=== PATIENT | male | born 1935 | race Caucasian/White ===

== ENCOUNTER 2020-03-06 10:48 | Inpatient (IN) | payer OTHER, MEDICARE ==
[2020-03-05 15:53] LABS: BILIRUBIN,URINE NEGATIVE (NEGATIVE); BLOOD, URINE 2+ (NEGATIVE); CLARITY/URINE SL CLOUDY (CLEAR); COLOR,URINE YELLOW (YELLOW); GLUCOSE,URINE NEGATIVE (NEGATIVE); KETONES,URINE NEGATIVE (NEGATIVE); LEUKOCYTE ESTERASE ,URINE 3+ (NEGATIVE); NITRITE, URINE POSITIVE (NEGATIVE); PH,URINE 5.5 (5.0-8.0); PROTEIN URINE 1+ (NEGATIVE); UROBILINOGEN,URINE 0.2 (0.2-1.0)
[2020-03-05 15:54] LABS: BASOPHILS # (AUTO) 0.1 K/uL (0.0-0.2); EOSINOPHILS # (AUTO) 0.3 K/uL (0.0-0.4); EOSINOPHILS % (AUTO) 2.8 % (0.0-4.0); HEMATOCRIT 44.1 % (36-54); HEMOGLOBIN 14.6 g/dL (14.0-18.0); LYMPHOCYTES # (AUTO) 2.1 K/uL (1.0-5.5); LYMPHOCYTES % (AUTO) 23.2 % (20.5-51.5); MEAN CORPUSCULAR HEMOGLOBIN 32 pg (27-31); MEAN CORPUSCULAR HGB CONC 33 % (32-36); MEAN CORPUSCULAR VOLUME 97 fL (79.0-98.0); MONOCYTES # (AUTO) 0.8 K/uL (0.0-1.0); MONOCYTES % (AUTO) 8.8 % (1.7-9.3); NEUTROPHILS # (AUTO) 5.8 K/uL (1.8-7.7); NEUTROPHILS % (AUTO) 64.2 % (40.0-70.0); PLATELET COUNT (AUTO) 180 K/uL (130-430); RED BLOOD CELL COUNT(AUTO) 4.55 MIL/uL (4.2-6.2); RED CELL DISTRIBUTION WIDTH 14.1 % (9.0-15.0); WHITE BLOOD COUNT (AUTO) 9.1 K/uL (4.8-10.8)
[2020-03-05 16:07] LABS: ALANINE AMINOTRANSFERASE 27 U/L (12-78); ALBUMIN 4.2 g/dL (3.4-4.8); ANION GAP 10 (5-15); ASPARTATE AMINOTRANSFERASE 29 U/L (10-37); CALCIUM 9.2 mg/dL (8.4-11.0); CHLORIDE 99 mmol/L (98-107); CREATININE 2.58 mg/dL (0.55-1.30); GLUCOSE 120 mg/dL (70-99); POTASSIUM 4.1 mmol/L (3.5-5.1); SODIUM SERUM 133 mmol/L (136-145); TOTAL BILIRUBIN 0.7 mg/dL (0.0-1.0); UREA NITROGEN, BLOOD 45 mg/dL (8-21)
[2020-03-05 16:48] LABS: BACTERIA,URINE MODERATE /HPF (None Seen); WBC,URINE 80-100 /HPF (0-3)
[2020-03-05 16:49] LABS: MUCUS,URINE 1+ /LPF (None Seen)
[~2020-03-06] VITALS: Ht 177.8 cm; Wt 72.6 kg
[2020-03-06] MEDS ORDERED: CEFTRIAXONE SOD 1 GM/ D5W 50 ML IV ONE ×2 (11:45)
[2020-03-06] MEDS ORDERED: MILK OF MAGNESIA 30 ML UDC PO PRN (13:45)
[2020-03-06] MEDS ORDERED: ONDANSETRON HCL 4 MG/2 ML VIAL IM PRN (13:45)
[2020-03-06] MEDS ORDERED: NALOXONE HCL 0.4 MG/ML AMP (NARCAN) IVP PRN (14:30)
[2020-03-06] MEDS ORDERED: NALBUPHINE HCL 10 MG/ML AMP IVP PRN (14:30)
[2020-03-06] MEDS ORDERED: fentaNYL CITRATE/PF 100 MCG/2 ML AMP IVP PRN ×2 (14:30)
[2020-03-06] MEDS ORDERED: FENT2mCg/mL-ROPIVA0.2%/NS EPID 200 ML EP SCH (14:30)
[2020-03-06] MEDS ORDERED: DIPHENHYDRAMINE INJ 50 MG/ML VIAL IVP PRN (14:30)
[2020-03-06] MEDS ORDERED: FENT2mCg/mL-ROPIVA0.2%/NS EPID 200 ML EP ONE (15:50)
[2020-03-06] MEDS ORDERED: LR 1,000 ML IV.SOLN IV ONE (16:30)
[2020-03-06] MEDS ORDERED: BUPIVACAINE /PF 0.75% 10 ML VIAL INJ ONE (16:30)
[2020-03-06] MEDS ORDERED: NS IRRIG SOLN 5000 ML IR ONE (16:30)
[2020-03-06] MEDS ORDERED: NS IRRIG SOLN 1000 ML IR ONE (16:30)
[2020-03-06] MEDS ORDERED: MIDAZOLAM HCL 5 MG/ML VIAL (VERSED) IV ONE (16:30)
[2020-03-06] MEDS ORDERED: MORPHINE 4 MG/ML INJ. SYRINGE IVP PRN (17:30)
[2020-03-06] MEDS ORDERED: HYDROcodone/ACETAMIN 5-325 MG TAB (NORCO/ VICODIN) PO PRN (17:30)
[2020-03-06 17:54] VITALS: BP_SYST 134
[2020-03-06 18:53] VITALS: BP_SYST 106
--- NOTE | 2020-03-06 19:24 | NUR ---
Handoff with night team registered nurse, Terrell Renner RN
[2020-03-06 19:33] VITALS: BP_SYST 109
--- NOTE | 2020-03-06 19:35 | NUR ---
initial notes: pt in bed, alert, awake oriented x 4. no pain. no distress, stable vital sign. s/p post prostatectomy, with continuous bladder irrigation with red urine drainage. pt has epidural drip. scd on on both leg, pt has incision to meddle lower abdomen with jb drain- draining to red drainage. explain plan of care, pt verbalized understanding. safety precatuion in place. needs attended, call light in reach. will monitor.
[2020-03-06] MEDS: DOCUSATE SODIUM 100 MG CAPSULE PO SCH (21:00)
[2020-03-06] MEDS: SIMETHICONE 80 MG TAB.CHEW PO SCH (21:38)
[2020-03-06] MEDS: NACL 0.9% 1,000 ML IV SCH (21:47)
--- NOTE | 2020-03-06 22:00 | NUR ---
pt is awake, alert, no pain, stable. bladder irrigation bag change, drain jb. needs attended. will monitor.
[2020-03-06] MEDS: ONDANSETRON HCL 4 MG/2 ML VIAL IVP PRN (22:06)
--- NOTE | 2020-03-06 23:01 | NUR ---
pt is able to move his right foot, still numb waist down, no pain , not distress, needs attended.
--- NOTE | 2020-03-07 01:26 | NUR ---
pt is awake, alert, able to move both legs, still numb, no pain. stable bladder irrigation flowing well. will monitor.
[2020-03-07 02:29] VITALS: BP_SYST 150
--- NOTE | 2020-03-07 04:19 | NUR ---
sleeping, no pain, stable. ivf infusing well. bed alarm on. will monitor.
[2020-03-07] MEDS: NACL 0.9% 1,000 ML IV SCH ×2 (05:07→09:27)
[2020-03-07] MEDS: ONDANSETRON HCL 4 MG/2 ML VIAL IVP PRN ×2 (05:13→13:29)
--- NOTE | 2020-03-07 05:19 | NUR ---
pt wakes up AND VOMITED GREENISH LIQUID, ZOFRAN GIVEN, STABLE. NEEDS ATTENDED.
--- NOTE | 2020-03-07 06:12 | NUR ---
pt is awake, alert, watching tv. no pain, not distress. bladder irrigation draining well. ivf infusing well. pt is able to move both lower extremities. needs attended. will monitor.
--- NOTE | 2020-03-07 06:52 | NUR ---
Nutrition Update Roman Scale 14 noted. Pt admitted for Benign Prostatic Hyperplasia Diet: Clear liquid BMI: 23 kg/m2 RD to follow per nutrition care standards.
[2020-03-07 07:13] LABS: ANION GAP 9 (5-15); CALCIUM 7.9 mg/dL (8.4-11.0); CHLORIDE 103 mmol/L (98-107); CREATININE 2.42 mg/dL (0.55-1.30); GLUCOSE 194 mg/dL (70-99); POTASSIUM 4.8 mmol/L (3.5-5.1); SODIUM SERUM 135 mmol/L (136-145); UREA NITROGEN, BLOOD 35 mg/dL (8-21)
[2020-03-07 07:19] LABS: BASOPHILS % (AUTO) 0.2 % (0.0-2.0); HEMATOCRIT 30.5 % (36-54); HEMOGLOBIN 10.3 g/dL (14.0-18.0); LYMPHOCYTES # (AUTO) 0.7 K/uL (1.0-5.5); LYMPHOCYTES % (AUTO) 5.7 % (20.5-51.5); MEAN CORPUSCULAR HEMOGLOBIN 33 pg (27-31); MEAN CORPUSCULAR HGB CONC 34 % (32-36); MEAN CORPUSCULAR VOLUME 96 fL (79.0-98.0); MONOCYTES # (AUTO) 0.8 K/uL (0.0-1.0); NEUTROPHILS # (AUTO) 9.9 K/uL (1.8-7.7); NEUTROPHILS % (AUTO) 87.1 % (40.0-70.0); PLATELET COUNT (AUTO) 137 K/uL (130-430); RED BLOOD CELL COUNT(AUTO) 3.16 MIL/uL (4.2-6.2); RED CELL DISTRIBUTION WIDTH 13.9 % (9.0-15.0)
--- NOTE | 2020-03-07 07:25 | NUR ---
closing: pt is awake, alert, watching tv. no pain, not distress. bladder irrigation draining well. ivf infusing well. pt is able to move both lower extremities. needs attended the whole shift. sbar report given to am rn.
[2020-03-07 07:44] LABS: WHITE BLOOD COUNT (AUTO) 11.4 K/uL (4.8-10.8)
--- NOTE | 2020-03-07 08:00 | NUR ---
INITIAL NOTES AWAKE IN BED, ALERT AND ORIENTED. NO SHORTNESS OF BREATH ON ROOM AIR. PAIN IS CONTROLLED AT THIS TIME PER PATIENT. IVF IS INFUSING WELL VIA LEFT HAND. ON CONTINUOUS FENTANYL DRIP. SURGICAL INCISION SITE ON LOWER MIDDLE ABDOMEN, DRESSING DRY AND INTACT. DAINA DRAIN INTACT; ABOUT 15 ML SEROSANGUINEOUS DRAIN NOTED. ON CONTINUOUS BLADDER IRRIGATION. WILKINS CATHETER IS INTACT DRAINING BLOODY URINE WITH SMALL CLOTS. PATIENT VOMITED ABOUT 100 ML GREENISH LIQUID. CLAIMED THAT IT HAPPENS EVERY TIME HE DRINKS SOMETHING. ORAL CARE PROVIDED. ENCOURAGED TO TAKE SMALL FREQUENT SIPS OF LIQUID. EXPLAINED THAT ZOFRAN IS NOT DUE TILL 11 AM, PATIENT AGREED. FALL AND SAFETY CHECKS DONE. CALL LIGHT WITHIN REACH. WILL CLOSELY MONITOR.
[2020-03-07] MEDS: DOCUSATE SODIUM 100 MG CAPSULE PO SCH ×2 (09:00→20:45)
[2020-03-07] MEDS: SIMETHICONE 80 MG TAB.CHEW PO SCH ×4 (09:22→20:41)
[2020-03-07] MEDS: cefTRIAXone 1 GM IVPB PREMIX 50 ML IV SCH (09:23)
--- NOTE | 2020-03-07 09:30 | NUR ---
MED PASS PATIENT WAS ABLE TO TAKE HIS ORAL MEDICATIONS WELL. HAS VOMITED 2 MORE TIMES SINCE SHIFT STARTED. ENCOURAGED SMALL FREQUENT DRINKS. SAFETY CHECKS DONE. WILL CONTINUE TO MONITOR.
[2020-03-07] MEDS ORDERED: INSULIN REGULAR, HUMAN 100 UNITS/ML, 10 ML VIAL (humuLIN R) SUBCUT PRN (10:00)
--- NOTE | 2020-03-07 10:00 | NUR ---
MD ROUNDS DR. TRISTAN MADE SAW PATIENT AT BEDSIDE. AWARE THAT PATIENT HAS BEEN VOMITING. RECOMMENDED THAT PATIENT START PHYSICAL THERAPY.
[2020-03-07] MEDS: 0.45% NACL 1,000 ML IV SCH ×2 (10:57→20:49)
[2020-03-07 11:46] VITALS: BP_SYST 141
--- NOTE | 2020-03-07 12:00 | NUR ---
MD ROUNDS SEEN AND EXAMINED BY DR. BILLY AT BEDSIDE. INFORMED THAT PATIENT'S PAIN IS MORE CONTROLLED NOW. HE SAID THAT HE MIGHT REMOVE THE FENTANYL DRIP TOMORROW.
--- NOTE | 2020-03-07 14:15 | NUR ---
ROUNDS RESTING IN BED. BOWEL MOVEMENT NOTED. TOLERATING CONTINUOUS BLADDER IRRIGATION. BLOODY URINE IS STILL DRAINING FROM WILKINS. WILL CLOSELY MONITOR.
[2020-03-07 15:51] VITALS: BP_SYST 133
--- NOTE | 2020-03-07 16:00 | NUR ---
ROUNDS ASLEEP. NO SIGN OF DISTRESS. ENSURED SAFETY.
--- NOTE | 2020-03-07 18:55 | NUR ---
CLOSING NOTES RESTING IN BED, NO SIGN OF DISTRESS. NO VOMITING SINCE THIS MORNING. IVF INFUSING WELL. TOLERATING CONTINUOS BLADDER IRRIGATION. 25 ML SEROSANGUINEOUS FLUID DRAINED FROM DAINA. ALL NEEDS MET THROUGHOUT SHIFT. FALL AND SAFETY CHECKS DONE. CALL LIGHT WITHIN REACH. WILL ENDORSE TO NIGHT NURSE.
--- NOTE | 2020-03-07 19:58 | NUR ---
OPENING NOTES Received report from JULIA Hannah. Patient resting in bed, AAOx4, breathing evenly and nonlabored on room air. Patient has an IV on the the left forearm 20g, IVF is running, patent and benign, no s/s of infection or infiltration at this time, patient tolerating it well. Patient is continuous Young catheter irrigation, FC secured, locked, and draining by gravity. Patient has a Fentanyl drip running at 10mL/hr, patient denies any pain or nausea/vomiting at this time. Educated patient on plan of care, fall/safety/aspiration precautions, call light system, patient stated understanding with return demonstration. Bed is locked, armed, and at lowest position, will continue to monitor. Addendum: 03/09/20 at 0401 by Viktor Ryan RN Patient has a DAINA drain with scant pink drainage.
[2020-03-07 20:40] VITALS: BP_SYST 155
[2020-03-08] VITALS: BP_SYST 157
[2020-03-08 05:00] VITALS: BP_SYST 151
[2020-03-08] MEDS: 0.45% NACL 1,000 ML IV SCH (05:19)
--- NOTE | 2020-03-08 06:45 | NUR ---
CLOSING NOTES Patient resting in bed, awake, breathing evenly and nonlabored on room air. IVF running, patient is tolerating it well. Patient on continuous bladder irrigation, urine now clear/light yellow. Patient is on fentyl drip, denied any pain throughout the shift. No s/s of distress at this time, no other needs at this time. Fall/safety precautions. Needs met throughout the shift, will endorse care to morning shift RN. Addendum: 03/09/20 at 0408 by Viktor Ryan RN CLOSING NOTES Patient resting in bed, awake, breathing evenly and nonlabored on room air. IVF running, patient is tolerating it well. Patient refused Colace last night during med GetThis. FC was clogged and flushed during the shift, irrigation bag and tubing was replaced. Patient tolerated it well, no bladder distention was noted, and patient denied feeling that his bladder was full. Drainage from FC turned from red/pink to clear light/yellow during the shift. Patient remains on continuous bladder irrigation, urine clear/light yellow. Patient is on Fentanyl drip, denied any pain throughout the shift. No s/s of distress at this time, no other needs at this time. Fall/safety precautions. Needs met throughout the shift, will endorse care to morning shift RN.
[2020-03-08 07:17] LABS: BASOPHILS % (AUTO) 0.3 % (0.0-2.0); EOSINOPHILS # (AUTO) 0.1 K/uL (0.0-0.4); EOSINOPHILS % (AUTO) 0.7 % (0.0-4.0); HEMOGLOBIN 10.2 g/dL (14.0-18.0); LYMPHOCYTES # (AUTO) 1.2 K/uL (1.0-5.5); LYMPHOCYTES % (AUTO) 9.3 % (20.5-51.5); MEAN CORPUSCULAR HEMOGLOBIN 33 pg (27-31); MEAN CORPUSCULAR HGB CONC 34 % (32-36); MEAN CORPUSCULAR VOLUME 96 fL (79.0-98.0); MONOCYTES # (AUTO) 1.3 K/uL (0.0-1.0); NEUTROPHILS # (AUTO) 10.1 K/uL (1.8-7.7); NEUTROPHILS % (AUTO) 79.7 % (40.0-70.0); PLATELET COUNT (AUTO) 146 K/uL (130-430); RED BLOOD CELL COUNT(AUTO) 3.14 MIL/uL (4.2-6.2); RED CELL DISTRIBUTION WIDTH 13.8 % (9.0-15.0); WHITE BLOOD COUNT (AUTO) 12.7 K/uL (4.8-10.8)
[2020-03-08 07:33] LABS: ANION GAP 9 (5-15); CHLORIDE 102 mmol/L (98-107); CREATININE 2.13 mg/dL (0.55-1.30); GLUCOSE 134 mg/dL (70-99); PHOSPHORUS 2.6 mg/dL (2.7-4.5); POTASSIUM 3.7 mmol/L (3.5-5.1); SODIUM SERUM 134 mmol/L (136-145); UREA NITROGEN, BLOOD 26 mg/dL (8-21)
[2020-03-08 08:00] VITALS: BP_SYST 150
--- NOTE | 2020-03-08 08:00 | NUR ---
INITIAL NOTES RESTING IN BED, AWAKE AND ORIENTED. NO SHORTNESS OF BREATH ON ROOM AIR. PAIN IS CONTROLLED PER PATIENT. IVF IS INFUSING WELL. ON CONTINUOUS BLADDER IRRIGATION. WILKINS CATHETER IS DRAINING YELLOWISH URINE. SURGICAL DRESSING ON LOWER MEDIAN ABDOMEN IS DRY AND INTACT. DAINA DRAIN HAS SMALL SEROSANGUINEOUS FLUID. NO VOMITING SINCE YESTERDAY MORNING PER PATIENT. ENCOURAGED SMALL SIPS. FALL AND SAFETY CHECKS DONE. CALL LIGHT WITHIN REACH. WILL CLOSELY MONITOR.
[2020-03-08] MEDS: DOCUSATE SODIUM 100 MG CAPSULE PO SCH (09:00)
--- NOTE | 2020-03-08 09:15 | NUR ---
MD ROUNDS DR. BILLY CAME IN AND ASSESSED PATIENT. DISCONTINUED FENTANYL DRIP AND REMOVED THE EPIDURAL. RECOMMENDED TO WAIT FOR 2 HOURS BEFORE PATIENT CAN START WALKING AROUND.
[2020-03-08] MEDS: SIMETHICONE 80 MG TAB.CHEW PO SCH ×2 (09:32→13:00)
[2020-03-08] MEDS: cefTRIAXone 1 GM IVPB PREMIX 50 ML IV SCH (09:32)
--- NOTE | 2020-03-08 10:00 | NUR ---
MED PASS PATIENT WAS ABLE TO TAKE HIS MEDICATIONS WELL. REFUSED COLACE BECAUSE HE SAID IT UPSETS HIS STOMACH AND TRIGGERS THE VOMIT.
--- NOTE | 2020-03-08 12:30 | NUR ---
MD ROUNDS DR. TRISTAN CAME IN TO SEE PATIENT. DISCUSSED HOME INSTRUCTIONS TO PATIENT. REMOVED DAINA DRAIN. 30 ML SEROSANGUINEOUS FLUID. ORDERED TO DISCONTINUE BLADDER IRRIGATION. MD MADE DISCHARGE ORDERS.
[2020-03-08 12:33] VITALS: BP_SYST 141
--- NOTE | 2020-03-08 13:30 | NUR ---
REFUSED MED PATIENT IS TO BE DISCHARGED. HE REFUSED TO GET THE SIMETHICONE AT THIS TIME BECAUSE HE IS AFRAID IT MIGHT TRIGGER HIM TO THROW UP AGAIN.
[2020-03-08 14:06] VITALS: BP_SYST 96
[2020-03-08] MEDS ORDERED: HYDR-4272 PO (14:56)
[2020-03-08] MEDS ORDERED: CEPH-568 PO (14:58)
--- NOTE | 2020-03-08 15:20 | NUR ---
D/C Patient Patient given medication reconciliation form and D/C instructions. Exit Care provided. Patient verbalized understanding. MD discussed with patient the results and treatment provided. Steady gait for discharge to home. Patient in stable condition, ID band removed. IV catheter removed, intact and dressing applied, no active bleeding. Sent home with gallegos catheter per MD, leg bag applied. Patient educated on pain management. All belongings sent with patient.
--- NOTE | 2020-03-08 15:47 | NUR ---
Casing Fluid Tender conduct a DCPA. PRINCIPLE SOFTWARE ENGINEER called the facesheet number for pts. , Cheryl Hooper at [phone] two times throughout the day. There was no answer, PRINCIPLE SOFTWARE ENGINEER left a message and will follow up tomorrow.
--- NOTE | 2020-03-20 16:24 | NUR ---
Discharge Follow Up Phone Call Phoned patient, . Patient stated that he was feeling better but still having some pain. He ran out of his pain meds but Tylenol seems to be adequate. He has finished his Keflex. He has attended his follow up appointments. He asked when he could drive again. I told him usually people wait up to six weeks post surgery but that would also depend on many factors so he should contact his physician for guidance. His is driving him around now.
== END 2020-03-08 15:20 | disposition home or self-care (01) | DRG 718 ==
LOC: SMU 10:48 → STU 18:41
PROVIDERS: ADMIT Urology; ATTEND Urology
PROC: 0VB00ZZ Excision of Prostate, Open Approach (ICD-10-PCS; principal; 2020-03-06 13:00)
DX: D29.1 Benign neoplasm of prostate (principal); N32.0 Bladder-neck obstruction; I10 Essential (primary) hypertension; E11.9 Type 2 diabetes mellitus without complications; R33.8 Other retention of urine; Z79.899 Other long term (current) drug therapy
CPT/HCPCS: 36415; 71046-TC; 80048; 80053; 81000-TC; 83735-TC; 84100-TC; 85025; 85610-TC; 85730-TC; 86886; 86900; 86901; 86920; 87086; 87186-TC; 88305; G0378; J0696; J1815; J2250; J2405; J3010; J3490; J7030; J7060; J7120